=== PATIENT | male | born 1970 | race Two or more races ===

== ENCOUNTER 2017-01-15 13:30 | Emergency (ER) | payer BC, OTHER ==
[2017-01-15 13:34] VITALS: BP 147/82; PULSE 78; TEMP 98.2; BMI 27.3
[2017-01-15] MEDS ORDERED: ACETAMINOPHEN 325 MG TABLET (FP) PO ONE (14:00)
[2017-01-15] MEDS ORDERED: ACETAMINOPHEN 325 MG TABLET (FP) ONE (14:05)
--- NOTE | 2017-01-15 14:08 | PDOC ---
History of Present Illness - General Chief Complaint: Injury Stated Complaint: BUMP ON HEAD Time Seen by Provider: 01/15/17 13:54 History Source: Patient Exam Limitations: No Limitations - History of Present Illness Initial Comments: 01/15/17 14:00 46 yr male with lac to right side of head after hitting head on partition at work. no LOC no vomiting. no medical history last tetanus 1 yr ago. Past History - Past Medical History Allergies/Adverse Reactions: Allergies Allergy/AdvReac Type Severity Reaction Status Date / Time No Known Allergies Allergy Verified 01/15/17 13:31 Home Medications: Ambulatory Orders NK [No Known Home Medication] 04/18/16 Anemia: No Asthma: No Cancer: No Cardiac Disorders: No CVA: No COPD: No CHF: No Dementia: No Diabetes: No GI Disorders: No Disorders: No HTN: No Hypercholesterolemia: No Liver Disease: No Seizures: No Thyroid Disease: No - Surgical History Abdominal Surgery: Yes Appendectomy: Yes Cardiac Surgery: No Cholecystectomy: No Lung Surgery: No Neurologic Surgery: No Orthopedic Surgery: No - Immunization History Immunization Up to Date: No - Psycho/Social/Smoking Cessation Hx Anxiety: No Suicidal Ideation: No Smoking History: Never smoked Have you smoked in the past 12 months: No Number of Cigarettes Smoked Daily: 0 Information on smoking cessation initiated: No Hx Alcohol Use: No Drug/Substance Use Hx: No Substance Use Type: None Hx Substance Use Treatment: No *Physical Exam - Vital Signs Last Vital Signs Temp Pulse Resp BP Pulse Ox 98.2 F 78 18 147/82 100 01/15/17 13:32 01/15/17 13:32 01/15/17 13:32 01/15/17 13:32 01/15/17 13:32 - Physical Exam General Appearance: Yes: Nourished, Appropriately Dressed HEENT: positive: EOMI, JONATHON, Normal ENT Inspection, TMs Normal, Pharynx Normal Neck: positive: Supple Respiratory/Chest: positive: Lungs Clear, Normal Breath Sounds Cardiovascular: positive: Regular Rhythm, Regular Rate Musculoskeletal: positive: Normal Inspection Extremity: positive: Normal Capillary Refill, Normal Inspection, Normal Range of Motion Integumentary: positive: Normal Color, Dry, Warm, Other (right side scalp temporal region with 0.5cm linear lac, no active bleeding ) Neurologic: positive: shampoo assistant II-XII NML intact, Fully Oriented, Alert, Normal Mood/ Affect, Normal Response, Motor Strength 5/5, Finger to Nose (intact), Other ( neg nv, neuro intact , pos headache ). negative: Numbness, Sensory Deficit Procedures - Laceration/Wound Repair Right Temporal Irrigated w/ Saline: Yes Betadine Prep: Yes Wound Repaired With: Dermabond Medical Decision Making - Medical Decision Making 01/15/17 14:39 cc: lac to right side of scalp on partition at work no LOC no nv positive headache neg neck pain neg midline cervical tenderness \will clean wound and place dermabond tetanus UTD pt agrees with plan of care all questions asked and answered. *DC/Admit/Observation/Transfer Diagnosis at time of Disposition: Laceration Traumatic injury of head Qualifiers: Encounter type: initial encounter Qualified Code(s): S09.90XA - Unspecified injury of head, initial encounter - Discharge Dispostion Disposition: HOME Condition at time of disposition: Improved - Referrals Referrals: STAFF,NOT ON [Primary Care Provider] - - Patient Instructions Additional Instructions: keep dry for 24hrs do not soak the wound , do not put any creams or lotions on the wound the glue will peel off on its own in about 5-7 days any headache that is severe, vomiting, or any other concerns return to ER right away
== END 2017-01-15 14:42 | disposition home or self-care (01) ==
LOC: JERFT 13:30
PROC: 0HQ1XZZ Repair Face Skin, External Approach (ICD-10-PCS; principal; 2017-01-15)
DX: S01.81XA Laceration without foreign body of other part of head, initial encounter (principal); R51 Headache; W22.09XA Striking against other stationary object, initial encounter; Y93.89 Activity, other specified; Y92.69 Other specified industrial and construction area as the place of occurrence of the external cause; Y99.0 Civilian activity done for income or pay
CPT/HCPCS: 99281-25

== ENCOUNTER 2017-08-23 16:47 | Emergency (ER) | payer OTHER ==
[2017-08-23 17:08] VITALS: BP 142/84; PULSE 79; TEMP 98; BMI 28.0
--- NOTE | 2017-08-23 17:08 | PDOC ---
Rapid Medical Evaluation Time Seen by Provider: 08/23/17 17:03 Medical Evaluation: Allergies Allergy/AdvReac Type Severity Reaction Status Date / Time No Known Allergies Allergy Verified 08/23/17 16:59 08/23/17 17:05 The patient presents with a chief complaint of: L eye swelling and redness starting yesterday. Pain today to the L eye as well as redness to the R eye. He feels like something is stuck in his L eye. Denies visual changes. I have performed a brief in-person evaluation of this patient; Pertinent physical exam findings: ambulatory, in no respiratory distress. conjunctivitis b/l. EOMI, PERTOMEKA I have ordered the following: Nothing The patient will proceed to the ED for further evaluation.
--- NOTE | 2017-08-23 18:12 | PDOC ---
History of Present Illness - General Chief Complaint: Eye Problem Stated Complaint: EYE PROBLEM Time Seen by Provider: 08/23/17 17:03 History Source: Patient Exam Limitations: No Limitations - History of Present Illness Initial Comments: CHIEF COMPLAINT: 47 y/o male with no significant PMH c/o left eye swelling and pain since yesterday. HISTORY OF PRESENT ILLNESS: The patient states every time he blinks he feels like something is irritating his left eye. He denies changes in vision, f/c, eye pain, discharge from eyes, eyes stuck shut after sleep. He does not wear glasses or contacts. Vital signs on arrival are within normal limits. REVIEW OF SYSTEMS: GENERAL/CONSTITUTIONAL: No fever/chills. No weakness. No weight change. HEAD, EYES, EARS, NOSE AND THROAT: +left eye swelling and pain. No change in vision. No ear pain or discharge. No sore throat. MUSCULOSKELETAL: No joint or muscle swelling or pain. No neck or back pain. SKIN: No rash or easy bruising. NEUROLOGIC: No headache, vertigo, loss of consciousness, or loss of sensation. PHYSICAL EXAM: GENERAL: The patient is awake, alert, and fully oriented, in no acute distress. He is well appearing and ambulatory. HEAD: Normal with no signs of trauma. ENT: Pupils equal, round and reactive to light, extraocular movements intact, sclera anicteric. slightly injected conjunctiva b/l. No discharge on lid margins. Left lateral upper lid with swelling. INternal hordeolum of left upper inner lid. no ptosis. No proptosis. No orbital swelling. EXTREMITIES: Normal range of motion, no edema. NEUROLOGICAL: Normal speech, normal gait. CN II-XII grossly intact. Past History - Past Medical History Allergies/Adverse Reactions: Allergies Allergy/AdvReac Type Severity Reaction Status Date / Time No Known Allergies Allergy Verified 08/23/17 16:59 Home Medications: Ambulatory Orders NK [No Known Home Medication] 04/18/16 Anemia: No Asthma: No Cancer: No Cardiac Disorders: No CVA: No COPD: No CHF: No Dementia: No Diabetes: No GI Disorders: No Disorders: No HTN: No Hypercholesterolemia: No Liver Disease: No Seizures: No Thyroid Disease: No Other medical history: DENIES. - Surgical History Abdominal Surgery: Yes Appendectomy: Yes Cardiac Surgery: No Cholecystectomy: No Lung Surgery: No Neurologic Surgery: No Orthopedic Surgery: No - Immunization History Immunization Up to Date: No - Suicide/Smoking/Psychosocial Hx Smoking History: Never smoked Have you smoked in the past 12 months: No Number of Cigarettes Smoked Daily: 0 Hx Alcohol Use: No Drug/Substance Use Hx: No Substance Use Type: None Hx Substance Use Treatment: No *Physical Exam - Vital Signs Last Vital Signs Temp Pulse Resp BP Pulse Ox 98 F 79 19 142/84 100 08/23/17 17:05 08/23/17 17:05 08/23/17 17:05 08/23/17 17:05 08/23/17 17:05 Medical Decision Making - Medical Decision Making A/P: 47 y/o male with left upper internal hordeolum. Will discharge the patient with supportive care instructions. Suggested he f/u with ophtho if no improvement within 1 month. The patient verbalizes understanding of all instructions, has no further questions and is awaiting discharge. *DC/Admit/Observation/Transfer Diagnosis at time of Disposition: Hordeolum internum of left upper eyelid - Discharge Dispostion Disposition: HOME Condition at time of disposition: Good - Referrals Referrals: Kartik Burnette [Staff Physician] - Call tomorrow - Patient Instructions Printed Discharge Instructions: DI for Hordeolum Additional Instructions: Discharge Instructions: -You have a hordeolum, the medical term for a stye -No treatment is required at this time -Apply hot compresses to the outside of the eye 3-4 times per day -A stye normally resolves on it's own -If there is no improvement or worsening of symptoms after 1 month please follow up with Dr. Burnette. -Return to the ER with any worsening or concerning symptoms. - Post Discharge Activity
== END 2017-08-23 18:18 | disposition home or self-care (01) ==
LOC: JERFT 16:47
DX: H00.024 Hordeolum internum left upper eyelid (principal)
CPT/HCPCS: 99281-25

== ENCOUNTER 2019-03-29 18:35 | Emergency (ER) | payer OTHER ==
[2019-03-29 18:56] VITALS: BP 140/86; PULSE 78; TEMP 99.6; BMI 28.8
--- NOTE | 2019-03-29 19:31 | PDOC ---
History of Present Illness - General Chief Complaint: Ear Problem Stated Complaint: EAR PROBLEMS Time Seen by Provider: 03/29/19 18:52 - History of Present Illness Initial Comments: 03/29/19 19:21 CHIEF COMPLAINT: ear pain HISTORY OF PRESENT ILLNESS: 48 yo M with no significant PMH presents to fast track with pain to R ear x 1 week. Patient also reports vomiting for the past week. Denies any abdominal pain or diarrhea. Patient denies any fever or chills. No recent travel or sick contacts. PAST MEDICAL HISTORY: Denies past medical history FAMILY HISTORY: Denies SOCIAL HISTORY: Denies tobacco, alcohol, illicit drug use. SURGICAL HISTORY: Denies ALLERGIES: No known drug allergies REVIEW OF SYSTEMS General/Constitutional: Denies fever or chills. Denies weakness, weight change. HEENT: R ear pain. Denies change in vision. Denies sore throat. Cardiovascular: Denies chest pain or shortness of breath. Respiratory: Denies cough, wheezing, or hemoptysis. Gastrointestinal: Denies nausea, vomiting, diarrhea or constipation. Denies rectal bleeding. Genitourinary: Denies dysuria, frequency, or change in urination. Musculoskeletal: Denies joint or muscle swelling or pain. Denies neck or back pain. Skin and breasts: Denies rash or easy bruising. Neurologic: Denies headache, vertigo, loss of consciousness, or loss of sensation. Psychiatric: Denies depression or anxiety. PHYSICAL EXAM General Appearance: Well-appearing, appropriately dressed. No apparent distress , no intoxication. HEENT: Mild erythema to R auditory canal. EOMI, PERRLA, normal ENT inspection , normal voice, TMs normal, pharynx normal. No conjunctival pallor. No photophobia, scleral icterus. Neck: Supple. Trachea midline. No tenderness, rigidity, carotid bruit, stridor , lymphadenopathy, or thyromegaly. Respiratory/Chest: Lungs CTAB. No shortness of breath, chest tenderness, respiratory distress, accessory muscle use. No crackles, rales, rhonchi, stridor , wheezing, dullness Cardiovascular: RRR. S1, S2. No JVD, murmur, bradycardia, tachycardia. Vascular Pulses: Dorsalis-Pedis (R): 2+, Dorsalis-Pedis (L): 2+ Gastrointestinal/Abdominal: Normal bowel sounds. Abdomen soft, non-distended. No tenderness or rebound tenderness. No organomegaly, pulsatile mass, guarding , hernia, hepatomegaly, splenomegaly. Lymphatic: No adenopathy, tenderness. Musculoskeletal/Extremities: Normal inspection. FROM of all extremities, normal capillary refill. Pelvis Stable. No CVA tenderness. No tenderness to extremities, pedal edema, swelling, erythema or deformity. Integumentary: Appropriate color, dry, warm. No cyanosis, erythema, jaundice or rash Neurologic: dividend clerk II-XII intact. Fully oriented, alert. Appropriate mood/affect. Motor strength 5/5. No appreciable EOM palsy, facial droop or sensory deficit. Past History - Past Medical History Allergies/Adverse Reactions: Allergies Allergy/AdvReac Type Severity Reaction Status Date / Time No Known Allergies Allergy Verified 03/29/19 18:50 Home Medications: Ambulatory Orders Neomycin/Polymyxin B Sulf/Hc [Dunnidim-Khjwxkndb-Qh Ear Susp] 4 drop AD DAILY # 1 bottle 03/29/19 Ondansetron [Zofran *Odt*] 4 mg SL TID PRN #21 od.tablet 03/29/19 Anemia: No Asthma: No Cancer: No Cardiac Disorders: No CVA: No COPD: No CHF: No Dementia: No Diabetes: No GI Disorders: No Disorders: No HTN: No Hypercholesterolemia: No Liver Disease: No Seizures: No Thyroid Disease: No - Surgical History Abdominal Surgery: Yes Appendectomy: Yes Cardiac Surgery: No Cholecystectomy: No Lung Surgery: No Neurologic Surgery: No Orthopedic Surgery: No - Immunization History Immunization Up to Date: No - Psycho Social/Smoking Cessation Hx Smoking History: Unknown if ever smoked Have you smoked in the past 12 months: No Number of Cigarettes Smoked Daily: 0 Hx Alcohol Use: No Drug/Substance Use Hx: No Substance Use Type: None Hx Substance Use Treatment: No *Physical Exam - Vital Signs Last Vital Signs Temp Pulse Resp BP Pulse Ox 99.6 F 78 16 140/86 99 03/29/19 18:50 03/29/19 18:50 03/29/19 18:50 03/29/19 18:50 03/29/19 18:50 Medical Decision Making - Medical Decision Making 03/29/19 19:31 48 yo M with no significant PMH presents to fast track with pain to R ear x 1 week. -otitis externa Will treat with otic drops. PAtient requests medication for nausea/vomiting. Discharge - Discharge Information Problems reviewed: Yes Clinical Impression/Diagnosis: Otitis externa Qualifiers: Otitis externa type: unspecified type Chronicity: acute Laterality: right Qualified Code(s): H60.501 - Unspecified acute noninfective otitis externa, right ear Condition: Stable Disposition: HOME - Admission No - Additional Discharge Information Prescriptions: Neomycin/Polymyxin B Sulf/Hc [Ktfjniuo-Nqlyovpsj-Ik Ear Susp] 4 drop AD DAILY # 1 bottle Ondansetron [Zofran *Odt*] 4 mg SL TID PRN #21 od.tablet PRN Reason: Nausea And/Or Vomiting - Follow up/Referral Referrals: Yohana Sheridan MD [Primary Care Provider] - - Patient Discharge Instructions Patient Printed Discharge Instructions: DI for Otitis Externa - Post Discharge Activity
== END 2019-03-29 19:37 | disposition home or self-care (01) ==
LOC: JERFT 18:35
DX: H60.501 Unspecified acute noninfective otitis externa, right ear (principal)
CPT/HCPCS: 99281-25

== ENCOUNTER 2021-10-05 06:53 | Day surgery (SDC) | payer OTHER ==
[2021-10-05] MEDS ORDERED: DEXAMETHASONE 4 MG TABLET (FP) PO ONE (10:00)
[2021-10-05] MEDS ORDERED: BORTEZOMIB (VELCADE) 2.5 MG/ML SUB-Q INJECTION SQ ONE (10:00)
[2021-10-05] MEDS ORDERED: FAMOTIDINE 20 MG TABLET PO ONE (10:58)
[2021-10-05 11:58] LABS: BASO % 0.6 % (0-2.0); EOS % 0.9 % (0-4.5); HEMOGLOBIN 13.7 GM/dL (11.7-16.9); LYMPH % 34.1 % (8-40); MCH 30.3 pg (25.7-33.7); MCHC 33.5 g/dl (32.0-35.9); MEAN CELL VOLUME 90.5 fl (80-96); MEAN PLT VOLUME 7.6 fl (7.5-11.1); MONO % 8.2 % (3.8-10.2); NEUT % 56.2 % (42.8-82.8); PLATELET COUNT 228 10^3/uL (134-434); RBC 4.53 M/mm3 (4.00-5.60); WHITE BLOOD COUNT 3.1 K/mm3 (4.0-10.0)
[2021-10-05 12:13] LABS: MAGNESIUM 2.1 mg/dL (1.8-2.4)
[2021-10-05 12:14] LABS: BLOOD UREA NITROGEN 14.4 mg/dL (7-18); CALCIUM 9.4 mg/dL (8.5-10.1)
[2021-10-05 12:15] LABS: ALBUMIN 3.4 g/dl (3.4-5.0)
[2021-10-05 12:16] LABS: URIC ACID 4.4 mg/dL (2.6-7.2)
[2021-10-05 12:17] LABS: BILIRUBIN,DIRECT 0.2 mg/dL (0.0-0.2); CREATININE 1.6 mg/dL (0.55-1.3)
[2021-10-05 12:19] LABS: TOT PROT 8.2 g/dl (6.4-8.2)
[2021-10-05 12:20] LABS: BILIRUBIN,TOTAL 0.8 mg/dL (0.2-1)
[2021-10-05 13:41] VITALS: BP 138/66; PULSE 75; TEMP 98.4
[2021-10-06 17:10] LABS: FREE KAPPA,SERUM 13.7 mg/L (3.3-19.4)
[2021-10-07 05:15] LABS: FREE KAP CHN UR 15.67 mg/L (1.17-86.46); KAPPA LAMBDA RATIO URIN 0.16 (1.83-14.26)
[2021-10-07 07:11] LABS: BETA-2-MICROGLOBULIN 1.7 mg/L (0.6-2.4)
== END 2021-10-05 12:00 | disposition home or self-care (01) ==
LOC: JONCCHEMO 06:53
PROVIDERS: ATTEND Internal Medicine Hematology & Oncology
DX: Z51.11 Encounter for antineoplastic chemotherapy (principal); C90.00 Multiple myeloma not having achieved remission
CPT/HCPCS: 36415; 80048; 80076; 82232; 82784; 83615; 83735; 83883; 84155; 84165; 84550; 85025; 86335; 96401; J9041

== ENCOUNTER 2021-10-12 06:58 | Day surgery (SDC) | payer OTHER ==
[2021-10-12] MEDS ORDERED: FAMOTIDINE 20 MG TABLET PO ONE (10:00)
[2021-10-12] MEDS ORDERED: DEXAMETHASONE 4 MG TABLET (FP) PO ONE (10:00)
[2021-10-12] MEDS ORDERED: BORTEZOMIB (VELCADE) 2.5 MG/ML SUB-Q INJECTION SQ ONE (10:00)
[2021-10-12 11:45] LABS: BASO % 0.5 % (0-2.0); HEMATOCRIT 40.6 % (35.4-49); HEMOGLOBIN 13.5 GM/dL (11.7-16.9); LYMPH % 29.1 % (8-40); MCH 29.9 pg (25.7-33.7); MCHC 33.3 g/dl (32.0-35.9); MEAN CELL VOLUME 89.7 fl (80-96); MEAN PLT VOLUME 7.5 fl (7.5-11.1); MONO % 9.6 % (3.8-10.2); NEUT % 59.8 % (42.8-82.8); PLATELET COUNT 232 10^3/uL (134-434); RBC 4.52 M/mm3 (4.00-5.60); RDW 14.2 % (11.9-15.9); WHITE BLOOD COUNT 3.6 K/mm3 (4.0-10.0)
[2021-10-12 12:03] LABS: ALBUMIN 3.3 g/dl (3.4-5.0); MAGNESIUM 2.1 mg/dL (1.8-2.4)
[2021-10-12 12:06] LABS: URIC ACID 2.5 mg/dL (2.6-7.2)
[2021-10-12 12:08] LABS: BILIRUBIN,DIRECT 0.2 mg/dL (0.0-0.2); BILIRUBIN,TOTAL 0.8 mg/dL (0.2-1); TOT PROT 7.8 g/dl (6.4-8.2)
[2021-10-12 12:21] LABS: BLOOD UREA NITROGEN 16.4 mg/dL (7-18)
[2021-10-12 12:24] LABS: CREATININE 1.5 mg/dL (0.55-1.3)
[2021-10-12 12:36] VITALS: BP 126/77; PULSE 77; TEMP 98.3
== END 2021-10-12 13:40 | disposition home or self-care (01) ==
LOC: JONCCHEMO 06:58
PROVIDERS: ATTEND Internal Medicine Hematology & Oncology
DX: Z51.11 Encounter for antineoplastic chemotherapy (principal); C90.00 Multiple myeloma not having achieved remission
CPT/HCPCS: 36415; 80048; 80076; 83615; 83735; 84550; 85025; 96401; J9041

== ENCOUNTER 2021-10-19 07:18 | Day surgery (SDC) | payer OTHER ==
[2021-10-19] MEDS ORDERED: FAMOTIDINE 20 MG TABLET PO ONE (10:00)
[2021-10-19] MEDS ORDERED: DEXAMETHASONE 4 MG TABLET (FP) PO ONE (10:00)
[2021-10-19] MEDS ORDERED: BORTEZOMIB (VELCADE) 2.5 MG/ML SUB-Q INJECTION SQ ONE (10:00)
[2021-10-19 11:52] LABS: BASO % 0.4 % (0-2.0); EOS % 1.7 % (0-4.5); HEMATOCRIT 41.1 % (35.4-49); HEMOGLOBIN 13.6 GM/dL (11.7-16.9); LYMPH % 25.5 % (8-40); MCHC 33.2 g/dl (32.0-35.9); MEAN CELL VOLUME 90.4 fl (80-96); MONO % 9.7 % (3.8-10.2); NEUT % 62.7 % (42.8-82.8); PLATELET COUNT 227 10^3/uL (134-434); RBC 4.55 M/mm3 (4.00-5.60); RDW 14.7 % (11.9-15.9); WHITE BLOOD COUNT 3.8 K/mm3 (4.0-10.0)
[2021-10-19 12:14] LABS: CALCIUM 8.8 mg/dL (8.5-10.1)
[2021-10-19 12:15] LABS: ALBUMIN 3.2 g/dl (3.4-5.0); BLOOD UREA NITROGEN 14.5 mg/dL (7-18)
[2021-10-19 12:17] LABS: BILIRUBIN,DIRECT 0.2 mg/dL (0.0-0.2); CREATININE 1.5 mg/dL (0.55-1.3); URIC ACID 2.5 mg/dL (2.6-7.2)
[2021-10-19 12:19] LABS: TOT PROT 7.7 g/dl (6.4-8.2)
[2021-10-19 12:20] LABS: BILIRUBIN,TOTAL 0.7 mg/dL (0.2-1)
[2021-10-19 17:10] VITALS: BP 115/70; PULSE 66; TEMP 98.6
== END 2021-10-19 13:10 | disposition home or self-care (01) ==
LOC: JONCCHEMO 07:18
PROVIDERS: ATTEND Internal Medicine Hematology & Oncology
DX: Z51.11 Encounter for antineoplastic chemotherapy (principal); C90.00 Multiple myeloma not having achieved remission
CPT/HCPCS: 36415; 80048; 80076; 83615; 83735; 84550; 85025; 96401; J9041

== ENCOUNTER 2021-10-26 06:16 | Day surgery (SDC) | payer OTHER ==
[2021-10-26] MEDS ORDERED: DEXAMETHASONE 4 MG TABLET (FP) PO ONE (10:00)
[2021-10-26] MEDS ORDERED: FAMOTIDINE 20 MG TABLET PO ONE (10:00)
[2021-10-26] MEDS ORDERED: BORTEZOMIB (VELCADE) 2.5 MG/ML SUB-Q INJECTION SQ ONE (10:00)
[2021-10-26 12:14] LABS: BASO % 0.4 % (0-2.0); EOS % 2.9 % (0-4.5); HEMATOCRIT 39.7 % (35.4-49); HEMOGLOBIN 13.7 GM/dL (11.7-16.9); LYMPH % 18.4 % (8-40); MCH 30.7 pg (25.7-33.7); MCHC 34.4 g/dl (32.0-35.9); MEAN PLT VOLUME 7.9 fl (7.5-11.1); NEUT % 69.3 % (42.8-82.8); PLATELET COUNT 190 10^3/uL (134-434); RBC 4.46 M/mm3 (4.00-5.60); RDW 14.4 % (11.9-15.9)
[2021-10-26 12:50] LABS: BLOOD UREA NITROGEN 15.6 mg/dL (7-18); MAGNESIUM 2.1 mg/dL (1.8-2.4)
[2021-10-26 12:51] LABS: ALBUMIN 3.3 g/dl (3.4-5.0); CALCIUM 9.1 mg/dL (8.5-10.1)
[2021-10-26 12:53] LABS: CREATININE 1.5 mg/dL (0.55-1.3); URIC ACID 2.9 mg/dL (2.6-7.2)
[2021-10-26 12:54] LABS: BILIRUBIN,DIRECT 0.3 mg/dL (0.0-0.2)
[2021-10-26 12:55] LABS: TOT PROT 7.5 g/dl (6.4-8.2)
[2021-10-26 16:49] VITALS: BP 116/81; PULSE 74; TEMP 98.6
== END 2021-10-26 13:55 | disposition home or self-care (01) ==
LOC: JONCCHEMO 06:16
PROVIDERS: ATTEND Internal Medicine Hematology & Oncology
DX: Z51.11 Encounter for antineoplastic chemotherapy (principal); C90.00 Multiple myeloma not having achieved remission
CPT/HCPCS: 36415; 80048; 80076; 83615; 83735; 84550; 85025; 96401; J9041

== ENCOUNTER 2021-11-02 06:27 | Day surgery (SDC) | payer OTHER ==
[~2021-11-02 06:27] MED LIST: FAMOTIDINE 20 MG TABLET PO ONE
[2021-11-02] MEDS ORDERED: DEXAMETHASONE 4 MG TABLET (FP) PO ONE (10:00)
[2021-11-02] MEDS ORDERED: BORTEZOMIB (VELCADE) 2.5 MG/ML SUB-Q INJECTION SQ ONE ×2 (10:00)
[2021-11-02] MEDS ORDERED: FAMOTIDINE 20 MG TABLET PO ONE (10:00)
[2021-11-02 12:54] LABS: BASO % 0.3 % (0-2.0); EOS % 4.2 % (0-4.5); HEMATOCRIT 41.4 % (35.4-49); HEMOGLOBIN 13.6 GM/dL (11.7-16.9); LYMPH % 21.5 % (8-40); MCH 29.4 pg (25.7-33.7); MCHC 32.9 g/dl (32.0-35.9); MEAN CELL VOLUME 89.4 fl (80-96); MEAN PLT VOLUME 8.3 fl (7.5-11.1); MONO % 15.4 % (3.8-10.2); NEUT % 58.6 % (42.8-82.8); PLATELET COUNT 201 10^3/uL (134-434); RBC 4.64 M/mm3 (4.00-5.60); RDW 14.7 % (11.9-15.9); WHITE BLOOD COUNT 3.6 K/mm3 (4.0-10.0)
[2021-11-02 13:17] LABS: CALCIUM 8.9 mg/dL (8.5-10.1); MAGNESIUM 2.1 mg/dL (1.8-2.4)
[2021-11-02 13:18] LABS: ALBUMIN 3.4 g/dl (3.4-5.0); BLOOD UREA NITROGEN 16.5 mg/dL (7-18)
[2021-11-02 13:20] LABS: CREATININE 1.5 mg/dL (0.55-1.3); URIC ACID 2.4 mg/dL (2.6-7.2)
[2021-11-02 13:21] LABS: BILIRUBIN,DIRECT 0.3 mg/dL (0.0-0.2)
[2021-11-02 13:22] LABS: TOT PROT 7.5 g/dl (6.4-8.2)
[2021-11-02 13:23] LABS: BILIRUBIN,TOTAL 1.1 mg/dL (0.2-1)
[2021-11-02 16:54] VITALS: BP 154/84; PULSE 71; TEMP 98.3
[2021-11-03 17:09] LABS: FREE KAPPA,SERUM 16.4 mg/L (3.3-19.4)
[2021-11-04 17:06] LABS: BETA-2-MICROGLOBULIN 1.7 mg/L (0.6-2.4)
== END 2021-11-02 14:25 | disposition home or self-care (01) ==
LOC: JONCCHEMO 06:27
PROVIDERS: ATTEND Internal Medicine Hematology & Oncology
DX: Z51.11 Encounter for antineoplastic chemotherapy (principal); C90.00 Multiple myeloma not having achieved remission
CPT/HCPCS: 36415; 80048; 80076; 82232; 82784; 83615; 83735; 83883; 84155; 84165; 84550; 85025; 96401; J9041

== ENCOUNTER 2021-11-09 06:34 | Day surgery (SDC) | payer OTHER ==
[2021-11-09] MEDS ORDERED: DEXAMETHASONE 4 MG TABLET (FP) PO ONE (10:00)
[2021-11-09] MEDS ORDERED: FAMOTIDINE 20 MG TABLET PO ONE (10:00)
[2021-11-09] MEDS ORDERED: BORTEZOMIB (VELCADE) 2.5 MG/ML SUB-Q INJECTION SQ ONE (10:00)
[2021-11-09 13:00] LABS: BASO % 0.5 % (0-2.0); EOS % 5.4 % (0-4.5); HEMATOCRIT 40.3 % (35.4-49); HEMOGLOBIN 13.4 GM/dL (11.7-16.9); LYMPH % 29.4 % (8-40); MCH 29.5 pg (25.7-33.7); MCHC 33.3 g/dl (32.0-35.9); MEAN CELL VOLUME 88.7 fl (80-96); MONO % 16.5 % (3.8-10.2); NEUT % 48.2 % (42.8-82.8); PLATELET COUNT 183 10^3/uL (134-434); RBC 4.54 M/mm3 (4.00-5.60); RDW 14.7 % (11.9-15.9); WHITE BLOOD COUNT 3.5 K/mm3 (4.0-10.0)
[2021-11-09 13:20] LABS: BLOOD UREA NITROGEN 16.8 mg/dL (7-18); CALCIUM 8.9 mg/dL (8.5-10.1)
[2021-11-09 13:21] LABS: ALBUMIN 3.3 g/dl (3.4-5.0)
[2021-11-09 13:23] LABS: BILIRUBIN,DIRECT 0.3 mg/dL (0.0-0.2); CREATININE 1.5 mg/dL (0.55-1.3)
[2021-11-09 13:24] LABS: TOT PROT 7.2 g/dl (6.4-8.2)
[2021-11-09 13:25] LABS: BILIRUBIN,TOTAL 1.1 mg/dL (0.2-1); URIC ACID 2.6 mg/dL (2.6-7.2)
[2021-11-09 18:18] VITALS: BP 134/84; PULSE 62; TEMP 98.4
== END 2021-11-09 14:30 | disposition home or self-care (01) ==
LOC: JONCCHEMO 06:34
PROVIDERS: ATTEND Internal Medicine Hematology & Oncology
DX: Z51.11 Encounter for antineoplastic chemotherapy (principal); C90.00 Multiple myeloma not having achieved remission
CPT/HCPCS: 36415; 80048; 80076; 83615; 83735; 84550; 85025; 96401; J9041

== ENCOUNTER 2021-11-16 07:31 | Day surgery (SDC) | payer OTHER ==
[2021-11-16] MEDS ORDERED: DEXAMETHASONE 4 MG TABLET (FP) PO ONE (10:00)
[2021-11-16] MEDS ORDERED: FAMOTIDINE 20 MG TABLET PO ONE (10:00)
[2021-11-16] MEDS ORDERED: BORTEZOMIB (VELCADE) 2.5 MG/ML SUB-Q INJECTION SQ ONE (10:30)
[2021-11-16 12:45] LABS: BASO % 1.2 % (0-2.0); EOS % 3.8 % (0-4.5); HEMATOCRIT 39.2 % (35.4-49); HEMOGLOBIN 13.4 GM/dL (11.7-16.9); LYMPH % 23.4 % (8-40); MCH 30.3 pg (25.7-33.7); MCHC 34.1 g/dl (32.0-35.9); MEAN CELL VOLUME 88.6 fl (80-96); MONO % 15.3 % (3.8-10.2); NEUT % 56.3 % (42.8-82.8); PLATELET COUNT 236 10^3/uL (134-434); RBC 4.42 M/mm3 (4.00-5.60); RDW 15.2 % (11.9-15.9); WHITE BLOOD COUNT 4.2 K/mm3 (4.0-10.0)
[2021-11-16 13:08] LABS: ALBUMIN 3.4 g/dl (3.4-5.0); BLOOD UREA NITROGEN 15.5 mg/dL (7-18); CALCIUM 9.2 mg/dL (8.5-10.1)
[2021-11-16 13:10] LABS: URIC ACID 2.3 mg/dL (2.6-7.2)
[2021-11-16 13:11] LABS: BILIRUBIN,DIRECT 0.2 mg/dL (0.0-0.2); CREATININE 1.4 mg/dL (0.55-1.3)
[2021-11-16 13:14] LABS: BILIRUBIN,TOTAL 0.9 mg/dL (0.2-1)
[2021-11-16 15:20] VITALS: BP 139/81; PULSE 61; TEMP 98.7
== END 2021-11-16 14:10 | disposition home or self-care (01) ==
LOC: JONCCHEMO 07:31
PROVIDERS: ATTEND Internal Medicine Hematology & Oncology
DX: Z51.11 Encounter for antineoplastic chemotherapy (principal); C90.00 Multiple myeloma not having achieved remission
CPT/HCPCS: 36415; 80048; 80076; 83615; 83735; 84550; 85025; 96401; J9041

== ENCOUNTER 2021-11-23 07:34 | Day surgery (SDC) | payer OTHER ==
[2021-11-23] MEDS ORDERED: FAMOTIDINE 20 MG TABLET PO ONE (10:00)
[2021-11-23] MEDS ORDERED: DEXAMETHASONE 4 MG TABLET (FP) PO ONE (10:00)
[2021-11-23] MEDS ORDERED: BORTEZOMIB (VELCADE) 2.5 MG/ML SUB-Q INJECTION SQ ONE (10:00)
[2021-11-23 12:37] VITALS: BP 138/75; PULSE 65; TEMP 98.4
[2021-11-23 13:01] LABS: BASO % 0.8 % (0-2.0); EOS % 8.1 % (0-4.5); HEMATOCRIT 41.3 % (35.4-49); HEMOGLOBIN 13.8 GM/dL (11.7-16.9); LYMPH % 23.3 % (8-40); MCH 29.6 pg (25.7-33.7); MCHC 33.4 g/dl (32.0-35.9); MEAN CELL VOLUME 88.7 fl (80-96); MEAN PLT VOLUME 8.7 fl (7.5-11.1); MONO % 9.6 % (3.8-10.2); NEUT % 58.2 % (42.8-82.8); PLATELET COUNT 199 10^3/uL (134-434); RBC 4.66 M/mm3 (4.00-5.60); RDW 15.2 % (11.9-15.9); WHITE BLOOD COUNT 3.5 K/mm3 (4.0-10.0)
[2021-11-23 13:22] LABS: CALCIUM 8.8 mg/dL (8.5-10.1); MAGNESIUM 1.9 mg/dL (1.8-2.4)
[2021-11-23 13:23] LABS: ALBUMIN 3.6 g/dl (3.4-5.0); BLOOD UREA NITROGEN 11.9 mg/dL (7-18)
[2021-11-23 13:25] LABS: BILIRUBIN,DIRECT 0.3 mg/dL (0.0-0.2); CREATININE 1.4 mg/dL (0.55-1.3); URIC ACID 2.7 mg/dL (2.6-7.2)
[2021-11-23 13:27] LABS: TOT PROT 7.1 g/dl (6.4-8.2)
[2021-11-23 13:28] LABS: BILIRUBIN,TOTAL 1.3 mg/dL (0.2-1)
== END 2021-11-23 14:30 | disposition home or self-care (01) ==
LOC: JONCCHEMO 07:34
PROVIDERS: ATTEND Internal Medicine Hematology & Oncology
DX: Z51.11 Encounter for antineoplastic chemotherapy (principal); C90.00 Multiple myeloma not having achieved remission
CPT/HCPCS: 36415; 80048; 80076; 83615; 83735; 84550; 85025; 96401; J9041

== ENCOUNTER 2021-11-30 06:40 | Day surgery (SDC) | payer OTHER ==
[2021-11-30] MEDS ORDERED: FAMOTIDINE 20 MG TABLET PO ONE (10:00)
[2021-11-30] MEDS ORDERED: DEXAMETHASONE 4 MG TABLET (FP) PO ONE (10:00)
[2021-11-30] MEDS ORDERED: BORTEZOMIB (VELCADE) 2.5 MG/ML SUB-Q INJECTION SQ ONE (10:00)
[2021-11-30 12:14] LABS: BASO % 0.9 % (0-2.0); EOS % 11.9 % (0-4.5); HEMATOCRIT 40.8 % (35.4-49); HEMOGLOBIN 13.8 GM/dL (11.7-16.9); LYMPH % 30.2 % (8-40); MCH 29.8 pg (25.7-33.7); MCHC 33.8 g/dl (32.0-35.9); MEAN CELL VOLUME 88.1 fl (80-96); MEAN PLT VOLUME 8.6 fl (7.5-11.1); MONO % 14.6 % (3.8-10.2); NEUT % 42.4 % (42.8-82.8); PLATELET COUNT 183 10^3/uL (134-434); RBC 4.63 M/mm3 (4.00-5.60); RDW 15.6 % (11.9-15.9)
[2021-11-30 12:39] LABS: ALBUMIN 3.5 g/dl (3.4-5.0); CALCIUM 8.9 mg/dL (8.5-10.1)
[2021-11-30 12:40] LABS: BLOOD UREA NITROGEN 9.6 mg/dL (7-18); MAGNESIUM 2.1 mg/dL (1.8-2.4)
[2021-11-30 12:42] LABS: BILIRUBIN,DIRECT 0.2 mg/dL (0.0-0.2); CREATININE 1.4 mg/dL (0.55-1.3); URIC ACID 2.5 mg/dL (2.6-7.2)
[2021-11-30 12:44] LABS: BILIRUBIN,TOTAL 1.3 mg/dL (0.2-1); TOT PROT 6.8 g/dl (6.4-8.2)
[2021-11-30 15:30] VITALS: BP 123/84; PULSE 69; TEMP 98.7
[2021-12-01 18:07] LABS: FREE KAPPA,SERUM 19.3 mg/L (3.3-19.4)
[2021-12-02 07:08] LABS: BETA-2-MICROGLOBULIN 2.3 mg/L (0.6-2.4)
[2021-12-02 20:12] LABS: FREE KAP CHN UR 41.43 mg/L (1.17-86.46); KAPPA LAMBDA RATIO URIN 6.95 (1.83-14.26)
== END 2021-11-30 14:00 | disposition home or self-care (01) ==
LOC: JONCCHEMO 06:40
PROVIDERS: ATTEND Internal Medicine Hematology & Oncology
DX: Z51.11 Encounter for antineoplastic chemotherapy (principal); C90.00 Multiple myeloma not having achieved remission
CPT/HCPCS: 36415; 80048; 80076; 82232; 82784; 83615; 83735; 83883; 84155; 84165; 84550; 85025; 86335; 96401; J9041

== ENCOUNTER 2021-12-07 07:41 | Day surgery (SDC) | payer OTHER ==
[2021-12-07] MEDS ORDERED: DEXAMETHASONE 4 MG TABLET (FP) PO ONE (10:00)
[2021-12-07] MEDS ORDERED: FAMOTIDINE 20 MG TABLET PO ONE (10:00)
[2021-12-07] MEDS ORDERED: BORTEZOMIB (VELCADE) 2.5 MG/ML SUB-Q INJECTION SQ ONE (10:00)
[2021-12-07 12:32] VITALS: BP 125/68; PULSE 67
[2021-12-07 12:40] VITALS: TEMP 98.9
[2021-12-07 12:48] LABS: BASO % 0.5 % (0-2.0); EOS % 12.8 % (0-4.5); HEMATOCRIT 38.8 % (35.4-49); HEMOGLOBIN 13.3 GM/dL (11.7-16.9); LYMPH % 37.1 % (8-40); MCH 29.9 pg (25.7-33.7); MCHC 34.3 g/dl (32.0-35.9); MEAN CELL VOLUME 87.3 fl (80-96); MEAN PLT VOLUME 8.4 fl (7.5-11.1); MONO % 12.3 % (3.8-10.2); NEUT % 37.3 % (42.8-82.8); PLATELET COUNT 199 10^3/uL (134-434); RBC 4.45 M/mm3 (4.00-5.60); RDW 15.2 % (11.9-15.9); WHITE BLOOD COUNT 5.2 K/mm3 (4.0-10.0)
[2021-12-07 13:46] LABS: CALCIUM 8.3 mg/dL (8.5-10.1)
[2021-12-07 13:47] LABS: ALBUMIN 3.4 g/dl (3.4-5.0); MAGNESIUM 2.1 mg/dL (1.8-2.4)
[2021-12-07 13:50] LABS: BILIRUBIN,DIRECT 0.4 mg/dL (0.0-0.2); CREATININE 1.5 mg/dL (0.55-1.3); TOT PROT 6.5 g/dl (6.4-8.2)
[2021-12-07 13:51] LABS: BILIRUBIN,TOTAL 1.5 mg/dL (0.2-1)
[2021-12-07 13:58] LABS: BLOOD UREA NITROGEN 14.8 mg/dL (7-18)
== END 2021-12-07 14:45 | disposition home or self-care (01) ==
LOC: JONCCHEMO 07:41
PROVIDERS: ATTEND Internal Medicine Hematology & Oncology
DX: Z51.11 Encounter for antineoplastic chemotherapy (principal); C90.00 Multiple myeloma not having achieved remission
CPT/HCPCS: 36415; 80048; 80076; 83615; 83735; 84550; 85025; 96401; J9041

== ENCOUNTER 2021-12-14 07:52 | Day surgery (SDC) | payer OTHER ==
[2021-12-14] MEDS ORDERED: BORTEZOMIB (VELCADE) 2.5 MG/ML SUB-Q INJECTION SQ ONE (10:00)
[2021-12-14] MEDS ORDERED: FAMOTIDINE 20 MG TABLET PO ONE (10:00)
[2021-12-14] MEDS ORDERED: DEXAMETHASONE 4 MG TABLET (FP) PO ONE (10:00)
[2021-12-14 11:40] VITALS: BP 122/76; PULSE 70
[2021-12-14 12:10] LABS: BASO % 0.3 % (0-2.0); EOS % 3.9 % (0-4.5); HEMATOCRIT 38.9 % (35.4-49); HEMOGLOBIN 13.3 GM/dL (11.7-16.9); MCH 29.9 pg (25.7-33.7); MCHC 34.2 g/dl (32.0-35.9); MEAN CELL VOLUME 87.2 fl (80-96); NEUT % 40.8 % (42.8-82.8); PLATELET COUNT 218 10^3/uL (134-434); RBC 4.46 M/mm3 (4.00-5.60); RDW 15.4 % (11.9-15.9); WHITE BLOOD COUNT 4.1 K/mm3 (4.0-10.0)
[2021-12-14 12:32] LABS: ALBUMIN 3.5 g/dl (3.4-5.0); BLOOD UREA NITROGEN 16.6 mg/dL (7-18); CALCIUM 8.5 mg/dL (8.5-10.1)
[2021-12-14 12:35] LABS: BILIRUBIN,DIRECT 0.4 mg/dL (0.0-0.2); CREATININE 1.3 mg/dL (0.55-1.3); URIC ACID 3.4 mg/dL (2.6-7.2)
[2021-12-14 12:37] LABS: BILIRUBIN,TOTAL 1.6 mg/dL (0.2-1); TOT PROT 6.3 g/dl (6.4-8.2)
[2021-12-14 13:12] LABS: RETICULOCYTES 1.78 % (0.5-1.5)
[2021-12-14 14:05] VITALS: TEMP 98.9
== END 2021-12-14 14:00 | disposition home or self-care (01) ==
LOC: JONCCHEMO 07:52
PROVIDERS: ATTEND Internal Medicine Hematology & Oncology
DX: Z51.11 Encounter for antineoplastic chemotherapy (principal); C90.00 Multiple myeloma not having achieved remission
CPT/HCPCS: 36415; 80048; 80076; 83010; 83615; 83735; 84550; 85025; 85045; 96401; J9041

== ENCOUNTER 2021-12-21 06:53 | Day surgery (SDC) | payer OTHER ==
[2021-12-21] MEDS ORDERED: FAMOTIDINE 20 MG TABLET PO ONE (09:30)
[2021-12-21] MEDS ORDERED: DEXAMETHASONE 4 MG TABLET (FP) PO ONE (09:30)
[2021-12-21] MEDS ORDERED: BORTEZOMIB (VELCADE) 2.5 MG/ML SUB-Q INJECTION SQ ONE (10:00)
[2021-12-21 12:18] LABS: BASO % 0.4 % (0-2.0); EOS % 6.6 % (0-4.5); HEMATOCRIT 41.1 % (35.4-49); HEMOGLOBIN 13.7 GM/dL (11.7-16.9); LYMPH % 34.4 % (8-40); MCH 29.3 pg (25.7-33.7); MCHC 33.3 g/dl (32.0-35.9); MEAN CELL VOLUME 87.9 fl (80-96); MEAN PLT VOLUME 8.5 fl (7.5-11.1); MONO % 7.9 % (3.8-10.2); NEUT % 50.7 % (42.8-82.8); PLATELET COUNT 200 10^3/uL (134-434); RBC 4.67 M/mm3 (4.00-5.60); RDW 15.6 % (11.9-15.9)
[2021-12-21 12:48] LABS: CALCIUM 8.8 mg/dL (8.5-10.1)
[2021-12-21 12:49] LABS: ALBUMIN 3.7 g/dl (3.4-5.0); BLOOD UREA NITROGEN 16.8 mg/dL (7-18); MAGNESIUM 2.1 mg/dL (1.8-2.4)
[2021-12-21 12:51] LABS: BILIRUBIN,DIRECT 0.3 mg/dL (0.0-0.2); CREATININE 1.4 mg/dL (0.55-1.3)
[2021-12-21 12:53] LABS: BILIRUBIN,TOTAL 1.4 mg/dL (0.2-1); TOT PROT 6.8 g/dl (6.4-8.2)
[2021-12-21 16:54] VITALS: BP 132/80; PULSE 73; RESP 18; TEMP 97.9
== END 2021-12-21 15:00 | disposition home or self-care (01) ==
LOC: JONCCHEMO 06:53
PROVIDERS: ATTEND Internal Medicine Hematology & Oncology
DX: Z51.11 Encounter for antineoplastic chemotherapy (principal); C90.00 Multiple myeloma not having achieved remission
CPT/HCPCS: 36415; 80048; 80076; 83615; 83735; 84550; 85025; 96401; J9041

== ENCOUNTER 2021-12-28 06:58 | Day surgery (SDC) | payer OTHER ==
[2021-12-28] MEDS ORDERED: DEXAMETHASONE 4 MG TABLET (FP) PO ONE (10:00)
[2021-12-28] MEDS ORDERED: FAMOTIDINE 20 MG TABLET PO ONE (10:00)
[2021-12-28] MEDS ORDERED: BORTEZOMIB (VELCADE) 2.5 MG/ML SUB-Q INJECTION SQ ONE (10:30)
[2021-12-28 12:36] LABS: BASO % 0.6 % (0-2.0); PLATELET COUNT 193 10^3/uL (134-434); WHITE BLOOD COUNT 5.9 K/mm3 (4.0-10.0)
[2021-12-28 12:39] LABS: EOS % 2.9 % (0-4.5); HEMATOCRIT 41.4 % (35.4-49); HEMOGLOBIN 13.9 GM/dL (11.7-16.9); LYMPH % 22.2 % (8-40); MCH 29.2 pg (25.7-33.7); MCHC 33.7 g/dl (32.0-35.9); MEAN CELL VOLUME 86.6 fl (80-96); MEAN PLT VOLUME 8.4 fl (7.5-11.1); MONO % 15.7 % (3.8-10.2); NEUT % 58.6 % (42.8-82.8); RBC 4.78 M/mm3 (4.00-5.60); RDW 15.8 % (11.9-15.9)
[2021-12-28 12:56] LABS: ALBUMIN 3.7 g/dl (3.4-5.0); BLOOD UREA NITROGEN 13.3 mg/dL (7-18)
[2021-12-28 12:58] LABS: CREATININE 1.6 mg/dL (0.55-1.3); URIC ACID 2.7 mg/dL (2.6-7.2)
[2021-12-28 12:59] LABS: BILIRUBIN,DIRECT 0.4 mg/dL (0.0-0.2)
[2021-12-28 13:00] LABS: TOT PROT 6.8 g/dl (6.4-8.2)
[2021-12-28 13:01] LABS: BILIRUBIN,TOTAL 1.5 mg/dL (0.2-1)
[2021-12-28 15:01] VITALS: BP 138/83; PULSE 82; RESP 16; TEMP 98.7
== END 2021-12-28 14:30 | disposition home or self-care (01) ==
LOC: JONCCHEMO 06:58
PROVIDERS: ATTEND Internal Medicine Hematology & Oncology
DX: Z51.11 Encounter for antineoplastic chemotherapy (principal); C90.00 Multiple myeloma not having achieved remission
CPT/HCPCS: 36415; 80048; 80076; 83615; 83735; 84550; 85025; 96401; J9041

== ENCOUNTER 2022-01-04 07:49 | Day surgery (SDC) | payer OTHER ==
[2022-01-04] MEDS ORDERED: FAMOTIDINE 20 MG TABLET PO ONE (10:00)
[2022-01-04] MEDS ORDERED: DEXAMETHASONE 4 MG TABLET (FP) PO ONE (10:00)
[2022-01-04] MEDS ORDERED: BORTEZOMIB 2.5 MG/ML SUB-Q INJECTION SQ ONE (10:30)
[2022-01-04 12:28] LABS: BASO % 0.5 % (0-2.0); EOS % 9.1 % (0-4.5); HEMATOCRIT 40.1 % (35.4-49); HEMOGLOBIN 13.5 GM/dL (11.7-16.9); LYMPH % 34.9 % (8-40); MCH 29.3 pg (25.7-33.7); MCHC 33.7 g/dl (32.0-35.9); MEAN CELL VOLUME 86.9 fl (80-96); MEAN PLT VOLUME 8.3 fl (7.5-11.1); MONO % 14.2 % (3.8-10.2); NEUT % 41.3 % (42.8-82.8); PLATELET COUNT 223 10^3/uL (134-434); RBC 4.62 M/mm3 (4.00-5.60); WHITE BLOOD COUNT 4.2 K/mm3 (4.0-10.0)
[2022-01-04 13:38] LABS: ALBUMIN 3.4 g/dl (3.4-5.0); BLOOD UREA NITROGEN 12.9 mg/dL (7-18); CALCIUM 8.4 mg/dL (8.5-10.1); MAGNESIUM 1.9 mg/dL (1.8-2.4)
[2022-01-04 13:40] LABS: CREATININE 1.4 mg/dL (0.55-1.3)
[2022-01-04 13:42] LABS: BILIRUBIN,TOTAL 1.5 mg/dL (0.2-1); TOT PROT 6.6 g/dl (6.4-8.2)
[2022-01-04 13:58] LABS: BILIRUBIN,DIRECT 0.3 mg/dL (0.0-0.2)
[2022-01-04 16:09] VITALS: BP 129/78; PULSE 78; RESP 16; TEMP 98.4
[2022-01-05 14:08] LABS: FREE KAPPA,SERUM 22.8 mg/L (3.3-19.4)
[2022-01-06 15:07] LABS: FREE KAP CHN UR 42.7 mg/L (1.17-86.46); KAPPA LAMBDA RATIO URIN 10.22 (1.83-14.26)
[2022-01-06 16:07] LABS: BETA-2-MICROGLOBULIN 1.8 mg/L (0.6-2.4)
== END 2022-01-04 14:15 | disposition home or self-care (01) ==
LOC: JONCCHEMO 07:49
PROVIDERS: ATTEND Internal Medicine Hematology & Oncology
DX: Z51.11 Encounter for antineoplastic chemotherapy (principal); C90.00 Multiple myeloma not having achieved remission
CPT/HCPCS: 36415; 80048; 80076; 82232; 82784; 83615; 83735; 83883; 84155; 84165; 85025; 86335; 96401; J9044

== ENCOUNTER 2022-01-11 06:59 | Day surgery (SDC) | payer OTHER ==
[2022-01-11] MEDS ORDERED: FAMOTIDINE 40 MG TABLET PO ONE (10:00)
[2022-01-11] MEDS ORDERED: DEXAMETHASONE 4 MG TABLET (FP) PO ONE (10:00)
[2022-01-11 10:30] LABS: BASO % 0.5 % (0-2.0); EOS % 2.5 % (0-4.5); HEMATOCRIT 37.6 % (35.4-49); LYMPH % 33.2 % (8-40); MCH 29.4 pg (25.7-33.7); MCHC 34.6 g/dl (32.0-35.9); MEAN PLT VOLUME 7.7 fl (7.5-11.1); MONO % 12.7 % (3.8-10.2); NEUT % 51.1 % (42.8-82.8); PLATELET COUNT 238 10^3/uL (134-434); RBC 4.42 M/mm3 (4.00-5.60); RDW 16.2 % (11.9-15.9); WHITE BLOOD COUNT 4.1 K/mm3 (4.0-10.0)
[2022-01-11] MEDS ORDERED: BORTEZOMIB 2.5 MG/ML SUB-Q INJECTION SQ ONE (10:30)
[2022-01-11 10:44] LABS: CALCIUM 8.5 mg/dL (8.5-10.1); MAGNESIUM 1.8 mg/dL (1.8-2.4)
[2022-01-11 10:45] LABS: ALBUMIN 3.3 g/dl (3.4-5.0); BLOOD UREA NITROGEN 12.8 mg/dL (7-18)
[2022-01-11 10:47] LABS: BILIRUBIN,DIRECT 0.3 mg/dL (0.0-0.2); CREATININE 1.4 mg/dL (0.55-1.3)
[2022-01-11 10:48] LABS: URIC ACID 3.2 mg/dL (2.6-7.2)
[2022-01-11 10:50] LABS: BILIRUBIN,TOTAL 1.4 mg/dL (0.2-1); TOT PROT 6.1 g/dl (6.4-8.2)
[2022-01-11 17:38] VITALS: BP 140/83; PULSE 65; RESP 20; TEMP 98.3
== END 2022-01-11 12:00 | disposition home or self-care (01) ==
LOC: JONCCHEMO 06:59
PROVIDERS: ATTEND Internal Medicine Hematology & Oncology
DX: Z51.11 Encounter for antineoplastic chemotherapy (principal); C90.00 Multiple myeloma not having achieved remission
CPT/HCPCS: 36415; 80048; 80076; 83615; 83735; 84550; 85025; 96401; J9044

== ENCOUNTER 2022-01-18 07:13 | Day surgery (SDC) | payer OTHER ==
[2022-01-18] MEDS ORDERED: DEXAMETHASONE 4 MG TABLET (FP) PO ONE (10:00)
[2022-01-18] MEDS ORDERED: FAMOTIDINE 40 MG TABLET PO ONE (10:00)
[2022-01-18] MEDS ORDERED: BORTEZOMIB 2.5 MG/ML SUB-Q INJECTION SQ ONE (10:30)
[2022-01-18 12:29] LABS: BASO % 0.7 % (0-2.0); HEMATOCRIT 40.4 % (35.4-49); HEMOGLOBIN 13.5 GM/dL (11.7-16.9); LYMPH % 26.3 % (8-40); MCH 29.3 pg (25.7-33.7); MCHC 33.4 g/dl (32.0-35.9); MEAN CELL VOLUME 87.7 fl (80-96); MONO % 11.1 % (3.8-10.2); NEUT % 56.9 % (42.8-82.8); PLATELET COUNT 205 10^3/uL (134-434); RBC 4.61 M/mm3 (4.00-5.60); RDW 17.4 % (11.9-15.9); WHITE BLOOD COUNT 4.2 K/mm3 (4.0-10.0)
[2022-01-18 13:01] LABS: ALBUMIN 3.4 g/dl (3.4-5.0); CALCIUM 8.7 mg/dL (8.5-10.1)
[2022-01-18 13:02] LABS: BLOOD UREA NITROGEN 13.4 mg/dL (7-18); MAGNESIUM 1.9 mg/dL (1.8-2.4)
[2022-01-18 13:04] LABS: BILIRUBIN,DIRECT 0.4 mg/dL (0.0-0.2); CREATININE 1.4 mg/dL (0.55-1.3); URIC ACID 2.8 mg/dL (2.6-7.2)
[2022-01-18 13:06] LABS: BILIRUBIN,TOTAL 1.5 mg/dL (0.2-1); TOT PROT 6.4 g/dl (6.4-8.2)
[2022-01-18 14:26] VITALS: BP 126/83; PULSE 70; RESP 18; TEMP 98.4
== END 2022-01-18 14:25 | disposition home or self-care (01) ==
LOC: JONCCHEMO 07:13
PROVIDERS: ATTEND Internal Medicine Hematology & Oncology
DX: Z51.11 Encounter for antineoplastic chemotherapy (principal); C90.00 Multiple myeloma not having achieved remission
CPT/HCPCS: 36415; 80048; 80076; 82607; 82728; 83540; 83550; 83615; 83735; 84439; 84443; 84550; 85025; 96401; J9044

== ENCOUNTER 2022-01-25 06:55 | Day surgery (SDC) | payer OTHER ==
[2022-01-25] MEDS ORDERED: BORTEZOMIB 2.5 MG/ML SUB-Q INJECTION SQ ONE (10:00)
[2022-01-25] MEDS ORDERED: FAMOTIDINE 40 MG TABLET PO ONE (10:00)
[2022-01-25] MEDS ORDERED: DEXAMETHASONE 4 MG TABLET (FP) PO ONE (10:00)
[2022-01-25 12:42] LABS: BASO % 0.4 % (0-2.0); EOS % 5.7 % (0-4.5); HEMATOCRIT 38.7 % (35.4-49); HEMOGLOBIN 13.3 GM/dL (11.7-16.9); LYMPH % 24.1 % (8-40); MCH 30.2 pg (25.7-33.7); MCHC 34.3 g/dl (32.0-35.9); MEAN PLT VOLUME 8.5 fl (7.5-11.1); MONO % 16.4 % (3.8-10.2); NEUT % 53.4 % (42.8-82.8); PLATELET COUNT 182 10^3/uL (134-434); RDW 16.9 % (11.9-15.9); WHITE BLOOD COUNT 5.8 K/mm3 (4.0-10.0)
[2022-01-25 13:39] LABS: BILIRUBIN,DIRECT 0.3 mg/dL (0.0-0.2); BLOOD UREA NITROGEN 14.9 mg/dL (7-18); CALCIUM 8.6 mg/dL (8.5-10.1); MAGNESIUM 1.9 mg/dL (1.8-2.4); URIC ACID 2.5 mg/dL (2.6-7.2)
[2022-01-25 13:41] LABS: ALBUMIN 3.4 g/dl (3.4-5.0)
[2022-01-25 13:44] LABS: CREATININE 1.3 mg/dL (0.55-1.3)
[2022-01-25 13:46] LABS: TOT PROT 6.2 g/dl (6.4-8.2)
[2022-01-25 13:47] LABS: BILIRUBIN,TOTAL 1.4 mg/dL (0.2-1)
[2022-01-25 16:22] VITALS: BP 113/60; PULSE 93; RESP 20; TEMP 98.7
== END 2022-01-25 14:45 | disposition home or self-care (01) ==
LOC: JONCCHEMO 06:55
PROVIDERS: ATTEND Internal Medicine Hematology & Oncology
DX: Z51.11 Encounter for antineoplastic chemotherapy (principal); C90.00 Multiple myeloma not having achieved remission
CPT/HCPCS: 36415; 80048; 80076; 83615; 83735; 84550; 85025; 96401; J9044

== ENCOUNTER 2022-02-01 07:11 | Day surgery (SDC) | payer OTHER ==
[2022-02-01] MEDS ORDERED: DEXAMETHASONE 4 MG TABLET (FP) PO ONE (10:00)
[2022-02-01] MEDS ORDERED: BORTEZOMIB 2.5 MG/ML SUB-Q INJECTION SQ ONE (10:00)
[2022-02-01] MEDS ORDERED: FAMOTIDINE 40 MG TABLET PO ONE (10:00)
[2022-02-01 12:35] LABS: BASO % 0.3 % (0-2.0); EOS % 7.6 % (0-4.5); HEMATOCRIT 40.7 % (35.4-49); HEMOGLOBIN 13.4 GM/dL (11.7-16.9); LYMPH % 24.7 % (8-40); MCH 29.3 pg (25.7-33.7); MEAN CELL VOLUME 88.7 fl (80-96); MEAN PLT VOLUME 8.4 fl (7.5-11.1); MONO % 15.5 % (3.8-10.2); NEUT % 51.9 % (42.8-82.8); PLATELET COUNT 203 10^3/uL (134-434); RBC 4.59 M/mm3 (4.00-5.60); RDW 17.2 % (11.9-15.9); WHITE BLOOD COUNT 5.1 K/mm3 (4.0-10.0)
[2022-02-01 12:57] LABS: MAGNESIUM 1.8 mg/dL (1.8-2.4)
[2022-02-01 12:58] LABS: ALBUMIN 3.4 g/dl (3.4-5.0); BLOOD UREA NITROGEN 12.6 mg/dL (7-18); CALCIUM 8.6 mg/dL (8.5-10.1)
[2022-02-01 12:59] LABS: CREATININE 1.5 mg/dL (0.55-1.3); URIC ACID 2.8 mg/dL (2.6-7.2)
[2022-02-01 13:01] LABS: BILIRUBIN,DIRECT 0.3 mg/dL (0.0-0.2); TOT PROT 6.4 g/dl (6.4-8.2)
[2022-02-01 13:05] LABS: BILIRUBIN,TOTAL 1.3 mg/dL (0.2-1)
[2022-02-01 17:06] VITALS: BP 144/73; PULSE 76; RESP 18; TEMP 98.6
== END 2022-02-01 13:55 | disposition home or self-care (01) ==
LOC: JONCCHEMO 07:11
PROVIDERS: ATTEND Internal Medicine Hematology & Oncology
DX: Z51.11 Encounter for antineoplastic chemotherapy (principal); C90.00 Multiple myeloma not having achieved remission
CPT/HCPCS: 36415; 80048; 80076; 83615; 83735; 84550; 85025; 96401; J9044

== ENCOUNTER 2024-07-10 15:03 | Observation (INO) | payer OTHER ==
[2024-07-10 17:21] LABS: BASO % 1.5 % (0-2.0); EOS % 1.1 % (0-4.5); HEMATOCRIT 45.6 % (35.4-49); LYMPH % 24.9 % (8-40); MCH 30.9 pg (25.7-33.7); MCHC 32.9 g/dl (32.0-35.9); MEAN CELL VOLUME 93.7 fl (80-96); MEAN PLT VOLUME 6.8 fl (7.5-11.1); MONO % 6.1 % (3.8-10.2); NEUT % 66.4 % (42.8-82.8); PLATELET COUNT 140 10^3/uL (134-434); RBC 4.86 M/mm3 (4.00-5.60); RDW 15.3 % (11.9-15.9); WHITE BLOOD COUNT 6.2 K/mm3 (4.0-10.0)
[2024-07-10 17:39] LABS: INR 1.11 (0.83-1.09); PROTHROMBIN TIME (PATIENT) 12.2 SEC (9.7-13.0)
[2024-07-10 17:42] LABS: ACTIVATED PTT 32.2 SECONDS (25.2-36.5)
[2024-07-10 17:48] LABS: POTASSIUM 4.4 mmol/L (3.5-5.1)
[2024-07-10 17:50] LABS: ALBUMIN 4.1 g/dl (3.4-5.0); CALCIUM 9.6 mg/dL (8.5-10.1)
[2024-07-10 17:54] LABS: CREATININE 1.5 mg/dL (0.55-1.3)
[2024-07-10 17:55] LABS: BILIRUBIN,TOTAL 1.4 mg/dL (0.2-1); TOT PROT 7.8 g/dl (6.4-8.2)
[2024-07-10] MEDS ORDERED: ENOXAPARIN NA (PORCINE) 100 MG/1 ML DISP.SYRIN SQ ONE (17:57)
[2024-07-10] MEDS: ENOXAPARIN NA (PORCINE) 100 MG/1 ML DISP.SYRIN SQ SCH (18:00)
[2024-07-10 18:37] LABS: HIV INTERPRETATION NEGATIVE (NEGATIVE)
[2024-07-10 19:29] VITALS: BMI 27.3
[2024-07-11] MEDS: LACTATED RINGERS SOLUTION 1,000 ML/1,000 ML INFUS.BAG IV SCH (00:42)
[2024-07-11 06:24] LABS: URINE APPEARANCE CLEAR; URINE BILIRUBIN NEGATIVE (NEGATIVE); URINE COLOR YELLOW; URINE GLUCOSE (UA) NEGATIVE (NEGATIVE); URINE KETONE NEGATIVE (NEGATIVE); URINE LEUK ESTERASE NEGATIVE (NEGATIVE); URINE NITRITE NEGATIVE (NEGATIVE); URINE PROTEIN NEGATIVE (NEGATIVE); URINE UROBILINOGEN 0.2 mg/dL (0.2-1.0)
[2024-07-11 07:45] LABS: BASO % 0.5 % (0-2.0); EOS % 1.1 % (0-4.5); HEMATOCRIT 39.1 % (35.4-49); LYMPH % 33.6 % (8-40); MCHC 33.2 g/dl (32.0-35.9); MEAN CELL VOLUME 93.4 fl (80-96); NEUT % 54.8 % (42.8-82.8); PLATELET COUNT 125 10^3/uL (134-434); RBC 4.18 M/mm3 (4.00-5.60); RDW 15.3 % (11.9-15.9); WHITE BLOOD COUNT 4.9 K/mm3 (4.0-10.0)
[2024-07-11 07:58] LABS: POTASSIUM 4.1 mmol/L (3.5-5.1)
[2024-07-11 08:01] LABS: CALCIUM 8.4 mg/dL (8.5-10.1)
[2024-07-11 08:02] LABS: ALBUMIN 3.4 g/dl (3.4-5.0); BLOOD UREA NITROGEN 13.2 mg/dL (7-18); MAGNESIUM 1.9 mg/dL (1.8-2.4)
[2024-07-11 08:05] LABS: CREATININE 1.5 mg/dL (0.55-1.3); PHOSPHOROUS 2.9 mg/dL (2.5-4.9)
[2024-07-11 08:06] LABS: BILIRUBIN,TOTAL 1.9 mg/dL (0.2-1)
[2024-07-11 08:07] LABS: TOT PROT 6.5 g/dl (6.4-8.2)
[2024-07-11] MEDS: FAMOTIDINE 20 MG/50 ML IVPB 20 MG/50 ML MG IVPB SCH (09:54)
[2024-07-11] MEDS: MAG HYDROX/AL HYDROX/SIMETH 30 ML UNIT-DOSE CUP PO PRN (10:03)
[2024-07-11] MEDS: ACETAMINOPHEN 1000 MG/100 ML BAG IVPB ONE (14:10)
[2024-07-12 08:34] LABS: HEMATOCRIT 41.2 % (35.4-49); HEMOGLOBIN 13.6 GM/dL (11.7-16.9); MCH 30.9 pg (25.7-33.7); MEAN CELL VOLUME 93.7 fl (80-96); MEAN PLT VOLUME 6.9 fl (7.5-11.1); PLATELET COUNT 127 10^3/uL (134-434); RDW 15.1 % (11.9-15.9)
[2024-07-12 08:57] LABS: POTASSIUM 3.8 mmol/L (3.5-5.1)
[2024-07-12 09:00] LABS: CALCIUM 8.7 mg/dL (8.5-10.1)
[2024-07-12 09:01] LABS: ALBUMIN 3.6 g/dl (3.4-5.0); BLOOD UREA NITROGEN 12.8 mg/dL (7-18)
[2024-07-12 09:04] LABS: CREATININE 1.5 mg/dL (0.55-1.3)
[2024-07-12 09:05] LABS: BILIRUBIN,TOTAL 1.7 mg/dL (0.2-1); TOT PROT 6.9 g/dl (6.4-8.2)
[2024-07-12] MEDS: ACETAMINOPHEN 325 MG TABLET (FP) PO PRN (16:42)
[2024-07-13 03:22] VITALS: RESP 18
[2024-07-13 18:29] VITALS: TEMP 98.6
[2024-07-14 08:43] VITALS: BP 128/79; PULSE 70
== END 2024-07-14 11:54 | disposition home or self-care (01) ==
LOC: JER 15:03 → JERBED 16:31 → J6S 18:38
PROVIDERS: ADMIT Internal Medicine; ATTEND Internal Medicine
PROC: 3E033NZ Introduction of Analgesics, Hypnotics, Sedatives into Peripheral Vein, Percutaneous Approach (ICD-10-PCS; principal; 2024-07-10)
PROC: 3E023GC Introduction of Other Therapeutic Substance into Muscle, Percutaneous Approach (ICD-10-PCS; 2024-07-10)
PROC: 3E033GC Introduction of Other Therapeutic Substance into Peripheral Vein, Percutaneous Approach (ICD-10-PCS; 2024-07-10)
PROC: 3E0337Z Introduction of Electrolytic and Water Balance Substance into Peripheral Vein, Percutaneous Approach (ICD-10-PCS; 2024-07-10)
DX: I82.402 Acute embolism and thrombosis of unspecified deep veins of left lower extremity (principal); N17.9 Acute kidney failure, unspecified; I26.93 Single subsegmental thrombotic pulmonary embolism without acute cor pulmonale; C90.00 Multiple myeloma not having achieved remission
CPT/HCPCS: 36415; 71275-TC; 80053; 81003; 82550; 83735; 84100; 84484; 85025; 85027; 85610; 85730; 86803; 87389; 93005; 93010; 93306-TC; 93971-TC; 99285-25; G0378; J0131; Q9967